=== PATIENT | male | born 1975 | race African-American/Black ===

== ENCOUNTER 2023-04-02 08:30 | Emergency (ER) | payer SELFPAY ==
[2023-04-02] MEDS ORDERED: Lidocaine 1% (PF) 30 ML VIAL ONE (09:56)
[2023-04-02] MEDS ORDERED: Ibuprofen 800 MG TAB ONE (09:58)
[2023-04-02] MEDS ORDERED: Cephalexin 250 MG CAP ONE (09:59)
== END 2023-04-02 12:01 | disposition home or self-care (01) ==
LOC: CSHERS 08:30
DX: L03.011 Cellulitis of right finger (principal); F17.290 Nicotine dependence, other tobacco product, uncomplicated; I10 Essential (primary) hypertension
CPT/HCPCS: 10060; J2001